=== PATIENT | female | born 1980 | race Caucasian/White ===

== ENCOUNTER 2024-02-03 19:28 | Emergency (ER) | payer OTHER ==
[~2024-02-03] VITALS: Ht 172.7 cm; Wt 88.5 kg
[2024-02-03] MEDS ORDERED: OMEP40CA21 PO (19:49)
[2024-02-03 19:55] VITALS: BP 105/70; TEMP 98; O2SAT 98
== END 2024-02-03 19:55 | disposition home or self-care (01) ==
LOC: ER 19:33
DX: J04.0 Acute laryngitis (principal); J02.9 Acute pharyngitis, unspecified; K21.9 Gastro-esophageal reflux disease without esophagitis